=== PATIENT | female | born 1970 | race Caucasian/White ===

== ENCOUNTER → 2017-08-14 | Outpatient (CLI) | payer OTHER ==
--- NOTE | 2017-08-14 12:23 | REP ---
RIGHT FOOT SERIES: Four views of the right foot are performed and demonstrate no evidence of acute fracture or dislocation. No intrinsic osseous pathology is seen. IMPRESSION: No acute fracture or dislocation. Signed by Michel Michelle MD 08/15/2017 07:53 P
== END ==
LOC: M LRY 11:32
PROVIDERS: ATTEND Nurse Practitioner Family
DX: S99.921A Unspecified injury of right foot, initial encounter (principal); X58.XXXA Exposure to other specified factors, initial encounter; Y93.9 Activity, unspecified; Y92.9 Unspecified place or not applicable; Y99.8 Other external cause status

== ENCOUNTER → 2019-07-16 | Outpatient (CLI) | payer OTHER ==
--- NOTE | 2019-07-16 12:39 | REP ---
ABDOMINAL SERIES: Supine and erect views of the abdomen demonstrate no free air and no evidence for bowel obstruction. Metallic clips are seen in the right upper quadrant. There appear to be phleboliths in the left pelvis. There are degenerative changes of the spine. An accompanying view of the chest demonstrates no acute infiltrate. Heart is normal in size. IMPRESSION: No free air or obstruction. Electronically Signed by Michel Michelle MD 07/17/2019 10:11 A
== END ==
LOC: M LRY 10:31
PROVIDERS: ATTEND Nurse Practitioner Family
DX: R10.9 Unspecified abdominal pain (principal)

== ENCOUNTER → 2019-07-16 | Outpatient (REF) | payer OTHER | LOC: M SFHCLERA 10:10 | PROVIDERS: ATTEND Nurse Practitioner Family | DX: R10.9 Unspecified abdominal pain (principal) ==

== ENCOUNTER → 2020-06-15 | Outpatient (REF) | payer OTHER | LOC: M WUC 09:50 | PROVIDERS: ATTEND Physician Assistant | DX: J02.9 Acute pharyngitis, unspecified (principal) ==

== ENCOUNTER → 2021-04-22 | Outpatient (CLI) | payer OTHER ==
--- NOTE | 2021-04-22 11:17 | REPPI ---
INDICATION: M25.551 PAIN IN RIGHT HIP. COMPARISON: None. TECHNIQUE: AP and lateral FINDINGS: No acute fracture or destructive osseous lesion IMPRESSION: Within normal limits <Electronically signed by Selvin Dudley > 04/22/21 1117
--- NOTE | 2021-04-22 11:17 | REPPI ---
INDICATION: M25.551 PAIN IN RIGHT HIP. COMPARISON: None TECHNIQUE: AP and frog-lateral views FINDINGS: The hip joint space is symmetric and relatively well maintained. There is no acute fracture or destructive osseous lesion. IMPRESSION: Within normal limits <Electronically signed by Selvin Dudley > 04/22/21 1118
== END ==
LOC: M PLAIMG 09:24
PROVIDERS: ATTEND Physician Assistant
DX: M25.551 Pain in right hip (principal)

== ENCOUNTER 2021-07-16 09:39 | Emergency (ER) | payer OTHER ==
[~2021-07-16] VITALS: Ht 157.5 cm; Wt 50.9 kg
[2021-07-16] MEDS ORDERED: GABA-1171 (11:42)
[2021-07-16] MEDS ORDERED: SERT50TA29 (11:42)
--- NOTE | 2021-07-16 13:34 | REPVR ---
PROCEDURE INFORMATION: Exam: MR Lumbar Spine Without Contrast Exam date and time: 07/16/2021 1:24 PM Age: 51 years old Clinical indication: Low back pain; Injury 1 year ago. TECHNIQUE: Imaging protocol: Multiplanar magnetic resonance images of the lumbar spine without intravenous contrast. COMPARISON: CR HIP COMPLETE (AP/LAT) 04/22/2021 9:48 AM FINDINGS: Vertebrae: Unremarkable. Spinal cord: Normal signal. No cord compression. T12-L1: There is degenerative disc disease including disc space narrowing and dessication. L1-L2: No significant disc disease. No significant spinal canal stenosis. No neural foraminal stenosis. L2-L3: No significant disc disease. No significant spinal canal stenosis. No neural foraminal stenosis. L3-L4: No significant disc disease. No significant spinal canal stenosis. No neural foraminal stenosis. L4-L5: There is disc desiccation. There is mild disc bulging. There is facet arthropathy and ligamentum flavum hypertrophy. L5-S1: There is facet arthropathy and ligamentum flavum hypertrophy. Soft tissues: Unremarkable. IMPRESSION: Minimal degenerative changes as described above. There is no significant spinal canal or neural foraminal stenosis. Electronically signed by: Maximino Magallanes On 07/16/2021 13:34:15 PM
--- NOTE | 2021-07-16 14:19 | REP ---
INDICATION: hip pain/difficulty walking. COMPARISON: 04/22/2021. TECHNIQUE: AP pelvis, AP and frogleg right hip. FINDINGS: There is no evidence of acute fracture, dislocation or intrinsic bone disease. No significant arthritic changes are seen at either hip joint. Multiple metallic clips there are seen in both inguinal regions. There phleboliths in the left pelvis. IMPRESSION: No acute findings. <Electronically signed by Michel Michelle > 07/16/21 [id number]
[2021-07-16 15:04] VITALS: BP 116/76
== END 2021-07-16 15:03 | disposition home or self-care (01) ==
LOC: M ED 09:39
DX: M51.26 Other intervertebral disc displacement, lumbar region (principal); M25.551 Pain in right hip; F32.9 Major depressive disorder, single episode, unspecified

== ENCOUNTER → 2021-07-22 | Outpatient (CLI) | payer OTHER ==
[~2021-07-22] MED LIST: GABA-1171; SERT50TA29
--- NOTE | 2021-07-22 09:19 | REP ---
INDICATION: LOW BACK PAIN. COMPARISON: None. TECHNIQUE: Three views. FINDINGS: Thoracic vertebral body heights are preserved. There is a minimal gentle levoconvex curvature in the thoracic spine. Pedicles and posterior elements are intact. No paravertebral soft tissue mass or swelling is seen. Disc spaces are maintained. Minimal discogenic spurring is seen in the midthoracic spine. There are clips in the right upper quadrant of the abdomen. IMPRESSION: No acute abnormality. Minimal levoconvex curvature. Minimal degenerative disc spurring. <Electronically signed by Rigo Mackay > 07/22/21 0325
--- NOTE | 2021-07-22 09:20 | REP ---
INDICATION: LOW BACK PAIN. COMPARISON: None. TECHNIQUE: AP and lateral views. FINDINGS: There are clips in right upper quadrant the abdomen. Lumbar vertebral body heights are preserved. A minimal dextroconvex curvature is present. Pedicles and posterior elements are intact. There is no evidence of spondylolysis or spondylolisthesis. Mild discogenic spurring is seen at L3-4 and L4-5. Psoas margins are symmetric. Sacrum and SI joints are unremarkable. IMPRESSION: Mild discogenic spurring. No acute abnormality. <Electronically signed by Rigo Mackay > 07/22/21 [id number]
== END ==
LOC: M SOG 08:41
PROVIDERS: ATTEND Orthopaedic Surgery
DX: M25.78 Osteophyte, vertebrae (principal)

== ENCOUNTER → 2021-08-10 | Outpatient (CLI) | payer OTHER ==
--- NOTE | 2021-08-10 14:21 | REP ---
INDICATION: RT HIP PAIN. COMPARISON: None. TECHNIQUE: Axial T1 and T2. Sagittal T2. Coronal T1, fat suppressed proton density, fat suppressed T2 and STIR. FINDINGS: The femoral heads are spherical in shape and symmetric in appearance. The hip joint spaces are symmetric and well maintained. There is no evidence of a joint effusion. There is no abnormal chondral or subchondral signal seen arising from the femoral or acetabular component of either hip. The cortical and marrow signal seen throughout the exam is within normal limits. There is no evidence of a mass or mass effect. The imaged portion the sacroiliac joints show them to be within normal limits. IMPRESSION: MRI findings are within normal limits. <Electronically signed by Selvin Dudley > 08/10/21 [id number]
== END ==
LOC: M PLAIMG 08:00
PROVIDERS: ATTEND Orthopaedic Surgery
DX: M25.551 Pain in right hip (principal)

== ENCOUNTER → 2021-11-02 | Outpatient (CLI) | payer OTHER | LOC: M PAIN 13:00 | PROVIDERS: ATTEND Nurse Practitioner Family | DX: M51.16 Intervertebral disc disorders with radiculopathy, lumbar region (principal); Z86.59 Personal history of other mental and behavioral disorders; Z87.891 Personal history of nicotine dependence; Z88.5 Allergy status to narcotic agent; Z91.09 Other allergy status, other than to drugs and biological substances; Z79.899 Other long term (current) drug therapy ==

== ENCOUNTER → 2022-06-07 | Outpatient (REF) | LOC: M PLAIMG 12:11 | PROVIDERS: ATTEND Internal Medicine | DX: M25.551 Pain in right hip (principal); M54.50 Low back pain, unspecified ==

== ENCOUNTER → 2023-08-16 | Outpatient (REF) | LOC: M PLAIMG 13:09 | PROVIDERS: ATTEND Internal Medicine | DX: R52 Pain, unspecified (principal) ==